=== PATIENT | female | born 1970 | race Caucasian/White ===

== ENCOUNTER → 2020-05-14 | Outpatient (CLI) | payer BC ==
[~2020-05-14] MED LIST: AZEL137S NS; CETI10 PO; CRUTCH USE; DULO60 PO; ESTR2; FLUT.05NI; IBUP800 PO; LEVO750 PO; LEVSOD88 PO; LINZESS290 MCG; MULVITMIND PO; OXYACE5T PO; ZYRTEC10 M2
[2020-05-14 13:16] LABS: BASOPHILS ABSOLUTE AUTO 0.05 K/mm3 (0.00-0.23); BASOPHILS PERCENT AUTO 1 % (0-2); EOSINOPHILS ABSOLUTE AUTO 0.05 K/mm3 (0.00-0.68); EOSINOPHILS PERCENT AUTO 1 % (0-6); Hematocrit 37.5 % (33.0-51.0); Hemoglobin 12.8 g/dL (11.5-16.0); IMMATURE GRAN ABSOLUTE AUTO 0.01 K/mm3 (0.00-0.10); IMMATURE GRAN PERCENT AUTO 0 % (0-1); LYMPHOCYTES ABSOLUTE AUTO 1.64 K/mm3 (0.84-5.20); LYMPHOCYTES PERCENT AUTO 26 % (21-46); MONOCYTES ABSOLUTE AUTO 0.48 K/mm3 (0.16-1.47); MONOCYTES PERCENT AUTO 8 % (4-13); Mean Corpuscular HGB 32.4 pg (26.0-34.0); Mean Corpuscular HGB Conc 34.1 g/dL (31.5-36.5); Mean Corpuscular Volume 95 fL (80-100); Mean Platelet Volume 9.4 fL (9.1-12.4); NEUTROPHILS ABSOLUTE AUTO 3.99 K/mm3 (1.96-9.15); NEUTROPHILS PERCENT AUTO 64 % (41-73); Platelet Count 269 K/mm3 (150-400); RDW Coefficient Variation 11.9 % (11.7-14.2); RDW Standard Deviation 41.1 fL (35.1-46.3); Red Blood Cell Count 3.95 M/mm3 (3.80-5.20); White Blood Cell Count 6.22 K/mm3 (4.00-11.30)
[2020-05-14 13:36] LABS: Alanine Aminotransfer (ALT/SGP 15 U/L (12-78); Albumin, Blood 3.6 g/dL (3.4-5.0); Alk Phos 39 U/L (40-126); Anion Gap 9 mmol/L (6-16); Aspartate Aminotrans (AST/SGOT 18 U/L (12-37); Bilirubin, Total 0.9 mg/dL (0.1-1.0); Blood Urea Nitrogen 13 mg/dL (8-24); Bun/Creatinine Ratio 16.9 (12.0-20.0); CO2, Blood 27 mmol/L (21-32); Calcium, Blood 8.7 mg/dL (8.5-10.1); Chloride, Blood 102 mmol/L (98-108); Creatinine, Blood 0.77 mg/dL (0.40-1.00); Globulin, Blood 3.7 g/dL (2.2-4.0); Glomerular Filtration Rate >60 (60-); Glucose, Blood 95 mg/dL (70-99); Potassium, Blood 3.6 mmol/L (3.5-5.5); Sodium, Blood 138 mmol/L (136-145); Thyroid Stimulating Hormone 0.585 uIU/mL (0.360-4.800); Total Protein, Blood 7.3 g/dL (6.4-8.2)
== END ==
LOC: LAB SHORT 13:13 → LAB EV 13:13
PROVIDERS: Family Medicine
DX: E03.9 Hypothyroidism, unspecified (principal); R00.2 Palpitations
CPT/HCPCS: 80053; 84443; 85025

== ENCOUNTER 2021-08-22 11:04 | Day surgery (SDC) | payer BC ==
[~2021-08-22] VITALS: Ht 157.5 cm; Wt 63.9 kg
== END 2021-08-22 13:01 | disposition home or self-care (01) ==
LOC: ORSCSDS 11:04
PROVIDERS: Internal Medicine Gastroenterology
PROC: 0DJD8ZZ Inspection of Lower Intestinal Tract, Via Natural or Artificial Opening Endoscopic (ICD-10-PCS; principal; 2021-08-22 12:15)
DX: Z12.11 Encounter for screening for malignant neoplasm of colon (principal); Z86.010 Personal history of colon polyps; K64.8 Other hemorrhoids; K57.30 Diverticulosis of large intestine without perforation or abscess without bleeding; Z79.899 Other long term (current) drug therapy
CPT/HCPCS: J0461; J2405; J2704; J7120

== ENCOUNTER 2022-11-17 08:35 | Day surgery (SDC) | payer OTHER ==
[~2022-11-17] VITALS: Ht 157.5 cm; Wt 58.8 kg
[2022-11-17] MEDS ORDERED: LIOT50 PO (09:00)
[2022-11-17] MEDS ORDERED: PROG100 PO (09:01)
--- NOTE | 2022-11-17 09:50 | NUR ---
11/17/22 0950 Nathan Miles ROPIVACAINE 0.5% 20 MLS MIXED & VERIFIED PER ORDER WITH EPI 0.10 ML (1MG/ML) TO MAKE ROPIVACAINE 0.5% 1:200,000 FOR INJECTION AT OPSITE BY DR MARTIN.
--- NOTE | 2022-11-17 11:05 | NUR ---
11/17/22 1105 ADALID LARA PT HAS PAIN 5/10. WILL GIVE PERCOCET 5/325MG NOW. PT AT BEDSIDE. BOTH UNDERSTAND AND ACKNOWLEDGE WHEN NEXT PILL TO BE TAKEN.
== END 2022-11-17 11:27 | disposition home or self-care (01) ==
LOC: ORSCSDS 08:35
PROVIDERS: Orthopaedic Surgery
PROC: 01N50ZZ Release Median Nerve, Open Approach (ICD-10-PCS; principal; 2022-11-17 09:45)
PROC: 01S40ZZ Reposition Ulnar Nerve, Open Approach (ICD-10-PCS; principal; 2022-11-17 09:45)
DX: G56.22 Lesion of ulnar nerve, left upper limb (principal); G56.02 Carpal tunnel syndrome, left upper limb; E03.9 Hypothyroidism, unspecified; Z79.899 Other long term (current) drug therapy
CPT/HCPCS: A9270; J0171; J0690; J1100; J1885; J2250; J2405; J2704; J2795; J3010; J7120

== ENCOUNTER → 2022-12-09 | Outpatient (CLI) | payer OTHER ==
[~2022-12-09] MED LIST changes: +LIOT50 PO; +PROG100 PO
== END | disposition home or self-care (01) ==
LOC: LAB SHORT 14:49 → PLD 14:49
DX: L57.0 Actinic keratosis (principal)
CPT/HCPCS: 88305

== ENCOUNTER 2023-04-13 08:57 | Day surgery (SDC) | payer OTHER ==
[~2023-04-13] VITALS: Ht 157.5 cm; Wt 58.0 kg
[2023-04-13] MEDS ORDERED: LIOT5 PO (09:28)
[2023-04-13] MEDS ORDERED: PROGESTERONE5000 GM (09:28)
[2023-04-13] MEDS ORDERED: ESTRADIOL1 M1 PO (09:28)
[2023-04-13] MEDS ORDERED: EUTHYROX75 MC1 (09:28)
[2023-04-13] MEDS ORDERED: ZYRTEC-D ER 51 EACH PO (09:29)
[2023-04-13] MEDS ORDERED: DHEA PO (09:29)
[2023-04-13] MEDS ORDERED: VITAMIN D325 MC3 (09:29)
--- NOTE | 2023-04-13 10:38 | NUR ---
04/13/23 Nathan Gutierrez ROPIVACAINE 0.5% 20 ML MIXED & VERIFIED W/ EPI 0.1 ML (1MG/ML) PER ORDER TO MAKE ROPIVACAINE 0.5[facility] 1[facility]200,[facility]
--- NOTE | 2023-04-13 11:59 | NUR ---
04/13/23 1159 ADALID LARA PT BAN IN WITH PT. PT SITTING IN [place]CL[place]ER DRINKING WATER. DECLINES SOMETHING TO EAT SHE WANTS TO TAKE HER THYROID MEDICATION WHEN SHE GETS HOME. DENIES PAIN AT THIS TIME. DENIES NAUSEA.
[2023-04-13 12:25] VITALS: BP 101/64
== END 2023-04-13 12:23 | disposition home or self-care (01) ==
LOC: ORSCSDS 08:57
PROVIDERS: Orthopaedic Surgery
PROC: 01S40ZZ Reposition Ulnar Nerve, Open Approach (ICD-10-PCS; principal; 2023-04-13 10:00)
PROC: 01N50ZZ Release Median Nerve, Open Approach (ICD-10-PCS; principal; 2023-04-13 10:00)
DX: G56.21 Lesion of ulnar nerve, right upper limb (principal); G56.01 Carpal tunnel syndrome, right upper limb; Z79.899 Other long term (current) drug therapy
CPT/HCPCS: J0171; J0690; J1100; J1885; J2250; J2405; J2704; J2795; J3010; J7120

== ENCOUNTER → 2023-05-19 | Outpatient (CLI) | payer OTHER ==
[~2023-05-19] MED LIST changes: +DHEA PO; +ESTRADIOL1 M1 PO; +EUTHYROX75 MC1; +LIOT5 PO; +PROGESTERONE5000 GM; +VITAMIN D325 MC3; +ZYRTEC-D ER 51 EACH PO
== END | disposition home or self-care (01) ==
LOC: PLD 07:59 → LAB SHORT 07:59
DX: D49.0 Neoplasm of unspecified behavior of digestive system (principal); D10.1 Benign neoplasm of tongue
CPT/HCPCS: 88305